=== PATIENT | male | born 1980 | race Caucasian/White ===

== ENCOUNTER 2020-11-24 11:39 | Emergency (ER) | payer OTHER ==
[~2020-11-24] VITALS: Ht 182.9 cm; Wt 82.0 kg
[2020-11-24] MEDS ORDERED: KETOROLAC 60MG/2ML VIAL IM STA (12:18)
[2020-11-24] MEDS ORDERED: LIDOCAINE HCL/EPINEPHRINE 1%-EPI 1:100,000 20 ML VIAL INFIL ONE (12:30)
[2020-11-24] MEDS ORDERED: BACITRACIN ZINC OINT UDPKT TOP ONE (12:30)
[2020-11-24] MEDS ORDERED: IBUP-2029 PO (14:11)
[2020-11-24 14:48] VITALS: BP 141/70
== END 2020-11-24 14:51 | disposition home or self-care (01) ==
LOC: ER 11:39
DX: S81.811A Laceration without foreign body, right lower leg, initial encounter (principal); W25.XXXA Contact with sharp glass, initial encounter; Y93.89 Activity, other specified; Y92.9 Unspecified place or not applicable
CPT/HCPCS: 96372; 99283; J1885